=== PATIENT | male | born 1995 | race African-American/Black ===

== ENCOUNTER 2021-07-22 08:57 | Emergency (ER) | payer SELFPAY ==
[2021-07-22] MEDS ORDERED: Ibuprofen 200 MG TAB ONE (10:12)
[2021-07-22] MEDS ORDERED: Dexamethasone 10 MG/ML VIAL ONE (10:12)
== END 2021-07-22 10:58 | disposition home or self-care (01) ==
LOC: CSHERS 08:57
DX: J06.9 Acute upper respiratory infection, unspecified (principal); J02.9 Acute pharyngitis, unspecified
CPT/HCPCS: 87081; 87430; 99283; J1100

== ENCOUNTER 2025-07-27 17:34 | Emergency (ER) | payer SELFPAY ==
[2025-07-27] MEDS ORDERED: Ketorolac Tromethamine 30 MG (1 mL) VIAL ONE (18:51)
[2025-07-27 19:14] LABS: ALT (SGPT) 17 U/L (Less than 45); AST (SGOT) 25 U/L (11-34); Albumin 4.1 g/dL (3.1-4.5); Alkaline Phosphatase 58 U/L (40-110); Anion Gap 16 mmol/L (10-20); BUN (Urea Nitrogen) 10 mg/dL (8.9-20.6); Bilirubin, Total 0.6 mg/dL (0.3-1.2); Calc. Creatinine Clearance 0 mL/min (70-130); Calcium 8.9 mg/dL (7.8-10.44); Carbon Dioxide 21 mmol/L (22-29); Chloride 103 mmol/L (98-107); Globulin 3.7 g/dL (2.4-3.5); Glucose 95 mg/dL (70-105); Lipase 7 U/L (8-78); Sodium 136 mmol/L (136-145)
[2025-07-27 19:15] LABS: Potassium 4.4 mmol/L (3.5-5.1)
[2025-07-27 19:36] LABS: #Basophils Less than 0.03 10x3/uL (0.0-0.2); #Eosinophils Less than 0.03 10x3/uL (0.0-0.5); #Monocytes 0.27 10x3/uL (0.0-1.1); #Neutrophils 7.35 10x3/uL (1.5-8.4); %Basophils 0.2 % (0.0-2.0); %Eosinophils 0.1 % (0.0-6.0); %Lymphocytes 5.2 % (18.0-47.0); %Monocytes 3.3 % (0.0-10.0); %Neutrophils 90.8 % (40.0-75.0); Hematocrit 46.2 % (38.8-50.0); Hemoglobin 16.0 g/dL (13.5-17.5); Mean Corpuscular Hemoglobin 30.9 pg (27.0-33.0); Mean Corpuscular Volume 89.2 fL (81.2-95.1); Platelet Count 264 10x3/uL (150-450); Red Blood Cell (RBC) Count 5.18 10x6/uL (4.32-5.72); White Blood Cell (WBC) Count 8.10 10x3/uL (3.5-10.5)
== END 2025-07-27 20:03 ==
LOC: CSHERS 17:34
DX: K52.9 Noninfective gastroenteritis and colitis, unspecified (principal); J45.909 Unspecified asthma, uncomplicated; Z79.51 Long term (current) use of inhaled steroids
CPT/HCPCS: 80053; 83690; 85025; 87428; 96361; 96374; 96375; J1885